=== PATIENT | female | born 1950 | race Caucasian/White ===

== ENCOUNTER 2017-07-27 18:28 | Emergency (ER) | payer BC ==
[2017-07-27 20:11] VITALS: BP 137/71
--- NOTE | 2017-07-27 20:52 | UC ---
Complaint Female HPI - HPI Summary HPI Summary: Patient had trouble urinating this AM, noted painful urination later in the brend[place] nd severe right sided flank pain that radiates to the front. denes fever, denies hx of kidney issues. - History Of Current Complaint Chief Complaint: UCGU Stated Complaint: URINARY Time Seen by Provider: 07/27/17 20:02 Hx Obtained From: Patient ?: No Onset/Duration: Sudden Onset, Lasting Hours Timing: Constant - ache, Intermittent - severe pain Severity Initially: Mild Severity Currently: Severe Pain Intensity: 10 - Allergies/Home Medications Allergies/Adverse Reactions: Allergies Allergy/AdvReac Type Severity Reaction Status Date / Time Penicillins Allergy Intermediate Hives Verified 07/27/17 20:20 diazepam AdvReac GI/headache/stiff Verified 07/27/17 20:20 neck meperidine [From Demerol] AdvReac GI, Verified 07/27/17 20:20 Headache, stiff neck morphine AdvReac GI, Verified 07/27/17 20:20 headache, stiff neck Home Medications: Home Medications Warfarin TAB(*) [Coumadin TAB(*)] 2.5 mg PO SEE INSTRUCTIONS 07/27/17 [History Confirmed 07/27/17] PMH/Surg Hx/FS Hx/Imm Hx Previously Healthy: Yes - Surgical History Surgical History: Yes Surgery Procedure, Year, and Place: TUBAL LIGATION,. ileostomy for ulcerative colitis 05/2017 - Family History Known Family History: Positive: Hypertension, Respiratory Disease - Social History Alcohol Use: None Substance Use Type: None Smoking Status (MU): Never Smoked Tobacco Review of Systems Constitutional: Negative Skin: Negative Eyes: Negative ENT: Negative Respiratory: Negative Cardiovascular: Negative Gastrointestinal: Nausea Genitourinary: Dysuria, Hematuria Motor: Negative Neurovascular: Negative Musculoskeletal: Negative Neurological: Negative Psychological: Negative Is Patient Immunocompromised?: No All Other Systems Reviewed And Are Negative: Yes Physical Exam Triage Information Reviewed: Yes Appearance: No Pain Distress, Ill-Appearing, Pain Distress Vital Signs: Initial Vital Signs Temp 98.6 F 07/27/17 20:00 Pulse 79 07/27/17 20:00 Resp 17 07/27/17 20:00 BP 137/71 07/27/17 20:00 Pulse Ox 100 07/27/17 20:00 Vital Signs Reviewed: Yes Eye Exam: Normal ENT Exam: Normal ENT: Positive: Pharynx normal, TMs normal Dental Exam: Normal Neck exam: Normal Neck: Positive: Supple, Nontender, No Lymphadenopathy Respiratory Exam: Normal Respiratory: Positive: Chest non-tender, Lungs clear, Normal breath sounds Cardiovascular Exam: Normal Cardiovascular: Positive: RRR, No Murmur, Pulses Normal Abdominal Exam: Normal Abdomen Description: Positive: Nontender, No Organomegaly, Soft, CVA Tenderness (R) - neg, CVA Tenderness (L) - neg Bowel Sounds: Positive: Present Musculoskeletal Exam: Normal Musculoskeletal: Positive: Strength Intact Neurological Exam: Normal Psychological Exam: Normal Skin Exam: Normal Complaint Female Dx - Course Course Of Treatment: hx obtained, exam performed ,meds reviewed, ct completed for stone, patient took 1000 mg of APAP prior to arrival. Ct shows 2 small stones, patient has tramadol at home from recent surgery, recommend follow up with PCP or reporat to ER if pain is not well controlled - Differential Dx/Diagnosis Differential Diagnosis/HQI/PQRI: Renal Colic, Ureteral Stone, Urinary Tract Infection Provider Diagnoses: renal stones right kidney. gall stones. dysuria Discharge - Discharge Plan Condition: Stable Disposition: HOME Patient Education Materials: Kidney Stones (ED) Referrals: Rico Wilson DO [Primary Care Provider] - Additional Instructions: 1. Increase fluid intake 2. Use your pain medication as needed. 3. If pain becomes uncontrolled, you develop fever or other uncontrolled symtpoms report to the ER. 4. other holguin follow up with Dr Wilson this week.
--- NOTE | 2017-07-27 21:10 | RAD ---
Indication: Right flank pain. CT of the abdomen and pelvis was performed without IV contrast. Coronal and sagittal reconstructed images were obtained. The lung bases demonstrate no pleural fluid, nodules or masses. Heart is of normal size without evidence of pericardial effusion. Liver is normal in size. No focal lesions or intrahepatic ductal dilatation is noted. The gallbladder demonstrates multiple gallstones. No pericholecystic fluid or wall thickening is noted. The pancreas demonstrates no mass or pancreatic duct dilatation. The spleen is normal in size. No adrenal lesions are noted. There is right hydronephrosis noted. Multiple calculi are noted in the right renal collecting system with right hydroureter. There are multiple calculi in the distal right ureter measuring 2 mm located 2 cm above the UVJ as well as 2 mm at the right ureterovesicular junction. The left kidney shows no hydronephrosis. Aorta and inferior vena cava are unremarkable. No dilated loops of bowel are noted. Patient has a colostomy in the right lower quadrant. Lane's pouch is noted. No hernias are noted. IMPRESSION: Right hydronephrosis in a ptotic kidney with 2 small 2 mm calculi in the distal right ureter 1 at the right ureterovesicular junction and the other located 2 cm above the right ureterovesicular junction. Postoperative changes are noted.
[2017-07-27] MEDS ORDERED: Ondansetron ODT TAB* 4 MG ONE (21:42)
[2017-07-27] MEDS ORDERED: Ondansetron ODT TAB* 4 MG PO ONE (21:49)
== END 2017-07-27 21:36 | disposition home or self-care (01) ==
LOC: UCCORT 18:28
DX: N20.0 Calculus of kidney (principal); R30.0 Dysuria; K80.80 Other cholelithiasis without obstruction; Z88.4 Allergy status to anesthetic agent; Z88.0 Allergy status to penicillin; Z88.8 Allergy status to other drugs, medicaments and biological substances; Z79.01 Long term (current) use of anticoagulants
CPT/HCPCS: 74176; 81003; 87086; 99212; A9270-GY; G0463